=== PATIENT | female | born 1995 | race Caucasian/White ===

== ENCOUNTER 2016-12-20 15:31 | Emergency (ER) | payer OTHER ==
[~2016-12-20] VITALS: Ht 160 cm; Wt 64.0 kg
[~2016-12-20 15:31] MED LIST: ACIDOPHILUS LA1 EAC1 PO; ACIDOPHILUS1 EAC4 PO; ADVIL,NUPRIN,M200 MG PO; ATARAX,VISTARIL50 MG PO; ATIVAN1 MG PO; CIPRO500 MG PO; CLONAZEPAM0.5 MG PO; DIGEST ADV LAC PO; FLAGYL500 MG PO; FLORASTOR250 MG PO; HYDROMORPHONE HC2 MG PO; IBUPROFEN600 MG PO; IMODIUM MS REL1 EACH PO; LORAZEPAM0.5 MG PO; LORAZEPAM1 MG PO; ONDANSETRON ODT4 MG PO; PEPTO BISMOL240 ML PO; PERCOCET 5/31 TABLET PO; SERTRALINE HCL100 MG PO; TORADOL10 MG PO; VIIBRYD10 MG PO; ZICAM NASAL SPRAY BOTH NARES; ZOFRAN ODT4 MG PO; ZOFRAN ODT8 MG PO; ZOFRAN0.8 MG/1 M PO; ZOFRAN4 MG PO; ZOLOFT100 MG PO
[2016-12-20 16:10] LABS: ADD MIUA? YES; BILIRUBIN NEGATIVE; BLOOD LARGE; GLUCOSE (STRIP) NEGATIVE; KETONES NEGATIVE; LEUKOCYTES SMALL; NITRITE NEGATIVE; PH, URINE 6.5 (5-8); PROTEIN (STRIP) 30; SPECIFIC GRAVITY 1.022 (1.000-1.030); UROBILINOGEN 0.2 MG/DL (0.2-1.0)
[2016-12-20 16:12] LABS: COLOR BROWN ((YELLOW))
[2016-12-20 16:18] LABS: HEMATOCRIT 39.6 % (36.0-46.0); MCH 31.3 PG (29.0-34.0); MCHC 34.1 G/DL (30.0-36.0); MCV 91.9 FL (83-99); MEAN PLAT.VOLUME 9.9 uM^3 (9.5-12.4); PLATELET COUNT 330 K/uL (156-360); RBC DIS.WIDTH-CV 11.6 % (11.8-14.6); RBC DIS.WIDTH-SD 38.1 % (39-53); RED BLOOD COUNT 4.31 M/uL (3.80-5.20); WHITE BLOOD COUNT 16.4 K/uL (4.1-10.2)
[2016-12-20 16:27] LABS: CHLORIDE 106 mEq/L (99-109); POTASSIUM 3.5 mEq/L (3.7-5.4); SODIUM 142 mEq/L (136-147)
[2016-12-20 16:29] LABS: GLUCOSE 142 mg/dL (70-99)
[2016-12-20 16:30] LABS: ANION GAP 15 MEQ/L (2-14)
[2016-12-20 16:31] LABS: TOTAL BILIRUBIN 0.2 mg/dL (0.0-1.0)
[2016-12-20 16:32] LABS: ALKALINE PHOSPHATASE 75 IU/L (3-129)
[2016-12-20 16:33] LABS: GFR ESTIMATE (CALCULATED) > 59 mL/min/
[2016-12-20 16:34] LABS: UREA NITROGEN (BUN) 12 mg/dL (9-23)
[2016-12-20 16:36] LABS: LIPASE 24 U/L (1.0-51.0)
[2016-12-20 16:39] LABS: BACTERIA NONE SEEN /HPF; CASTS NONE SEEN /LPF; CRYSTALS NONE SEEN; EPITHELIAL CELLS RARE /HPF; MUCUS NONE SEEN /LPF; RED BLOOD CELLS TNTC /HPF (0-5); WHITE BLOOD CELLS 0-5 /HPF (0-5)
[2016-12-20 16:44] LABS: QUANTITATIVE HCG < 4.0 MIU/ML
[2016-12-20] MEDS ORDERED: FLOMAX0.4 MG PO (17:38)
[2016-12-20] MEDS ORDERED: MOTRIN800 MG PO (17:38)
[2016-12-20] MEDS ORDERED: NORCO 5/3251 TABLET PO (17:38)
[2016-12-20] MEDS ORDERED: ZOFRAN4 MG PO (17:50)
[2016-12-20 18:24] VITALS: BP 113/65
== END 2016-12-20 18:25 | disposition home or self-care (01) ==
LOC: EME 15:31
PROVIDERS: Nurse Practitioner Family
DX: N20.0 Calculus of kidney (principal); Z87.442 Personal history of urinary calculi
CPT/HCPCS: 74176; 80053; 81003; 83690; 84702; 85027; 99281; 99285; J1885; J2270; J2405; J7030

== ENCOUNTER 2017-03-03 01:06 | Inpatient (IN) | payer OTHER ==
[~2017-03-03] VITALS: Ht 162.6 cm; Wt 61.0 kg
[~2017-03-03 01:06] MED LIST changes: +FLOMAX0.4 MG PO; +MOTRIN800 MG PO; +NORCO 5/3251 TABLET PO
[2017-03-03 01:47] LABS: MCH 30.8 PG (29.0-34.0); MCHC 34.6 G/DL (30.0-36.0); MCV 89.2 FL (83-99); MEAN PLAT.VOLUME 9.9 uM^3 (9.5-12.4); PLATELET COUNT 312 K/uL (156-360); RBC DIS.WIDTH-CV 12.3 % (11.8-14.6); RBC DIS.WIDTH-SD 40.5 % (39-53); RED BLOOD COUNT 4.15 M/uL (3.80-5.20); WHITE BLOOD COUNT 20.3 K/uL (4.1-10.2)
[2017-03-03 01:48] LABS: ADD MIUA? YES; BILIRUBIN NEGATIVE; BLOOD LARGE; COLOR YELLOW ((YELLOW)); GLUCOSE (STRIP) NEGATIVE; KETONES NEGATIVE; LEUKOCYTES TRACE; NITRITE NEGATIVE; PROTEIN (STRIP) 30; SPECIFIC GRAVITY 1.015 (1.000-1.030); UROBILINOGEN 0.2 MG/DL (0.2-1.0)
[2017-03-03 01:58] LABS: CHLORIDE 106 mEq/L (99-109); POTASSIUM 3.7 mEq/L (3.7-5.4); SODIUM 137 mEq/L (136-147)
[2017-03-03 02:00] LABS: GLUCOSE 117 mg/dL (70-99)
[2017-03-03 02:01] LABS: BACTERIA RARE /HPF; EPITHELIAL CELLS 1+ /HPF; MUCUS 1+ /LPF; RED BLOOD CELLS TNTC /HPF (0-5); UCUL ADDED? NO
[2017-03-03 02:01] LABS: ANION GAP 11 MEQ/L (2-14)
[2017-03-03 02:04] LABS: GFR ESTIMATE (CALCULATED) > 59 mL/min/
[2017-03-03 02:05] LABS: UREA NITROGEN (BUN) 13 mg/dL (9-23)
[2017-03-03 02:29] LABS: QUANTITATIVE HCG 157556.9 MIU/ML
[2017-03-03 06:06] VITALS: BP 111/71
[2017-03-03 08:10] VITALS: BP 106/57
[2017-03-03] MEDS ORDERED: PEPCID40 MG PO (11:14)
[2017-03-03] MEDS ORDERED: DICLEGIS DR 101 EACH PO (11:14)
[2017-03-03 12:33] VITALS: BP 109/58
[2017-03-03 15:17] VITALS: BP 131/91
[2017-03-03 17:53] LABS: AMPHETAMINES QUANT VALUE 0 NG/ML; BARBITUATES QUANT VALUE 0 NG/ML; BENZODIAZEPINES QUANT VALUE 0 NG/ML; BENZODIAZEPINES, URINE SCREEN Negative (200 ng/mL); OPIATES QUANTITATIVE VALUE 0 NG/ML; PHENCYCLIDINE QUANT VALUE 0 NG/ML
[2017-03-03 20:20] VITALS: BP 121/71
[2017-03-03 23:40] VITALS: BP 129/64
[2017-03-04 04:15] VITALS: BP 130/65
[2017-03-04 07:24] LABS: HEMATOCRIT 35.8 % (36.0-46.0); MCHC 34.4 G/DL (30.0-36.0); MCV 90.2 FL (83-99); MEAN PLAT.VOLUME 9.9 uM^3 (9.5-12.4); PLATELET COUNT 263 K/uL (156-360); RBC DIS.WIDTH-CV 12.1 % (11.8-14.6); RBC DIS.WIDTH-SD 40.2 % (39-53); RED BLOOD COUNT 3.97 M/uL (3.80-5.20)
[2017-03-04 07:25] LABS: WHITE BLOOD COUNT 9.5 K/uL (4.1-10.2)
[2017-03-04 07:37] LABS: ANION GAP 12 MEQ/L (2-14); CHLORIDE 106 MEQ/L (99-109); GFR ESTIMATE (CALCULATED) > 59 mL/min/; GLUCOSE 92 mg/dL (70-99); POTASSIUM 3.7 MEQ/L (3.7-5.4); SAMPLE HEMOLYSIS CHECK 0; SAMPLE ICTERIC CHECK 0; SAMPLE LIPEMIA CHECK 0; SODIUM 136 MEQ/L (136-147); UREA NITROGEN (BUN) 4 mg/dL (9-23)
[2017-03-04 08:37] VITALS: BP 129/90
[2017-03-04 12:09] VITALS: BP 118/74
[2017-03-04] MEDS ORDERED: FLORASTOR250 MG PO (12:45)
[2017-03-04] MEDS ORDERED: PRENATAL VITAM1 EAC6 PO (12:45)
== END 2017-03-04 14:10 | disposition home or self-care (01) | DRG 781 ==
LOC: EME 01:06 → EDOF 04:27 → 2EASTP 05:53
PROVIDERS: Family Medicine; Internal Medicine
DX: O99.89 Other specified diseases and conditions complicating pregnancy, childbirth and the puerperium (principal); N13.2 Hydronephrosis with renal and ureteral calculous obstruction; R56.9 Unspecified convulsions; O99.321 Drug use complicating pregnancy, first trimester; F12.90 Cannabis use, unspecified, uncomplicated; O99.341 Other mental disorders complicating pregnancy, first trimester; F41.0 Panic disorder [episodic paroxysmal anxiety]; F32.9 Major depressive disorder, single episode, unspecified; G43.909 Migraine, unspecified, not intractable, without status migrainosus; Z3A.09 9 weeks gestation of pregnancy
CPT/HCPCS: 76770; 80048; 80306 90; 81003; 84702; 85027; 99281; 99285; J0692; J2405; J7030; J7050